=== PATIENT | female | born 1970 | race Caucasian/White ===

== ENCOUNTER 2025-03-03 09:25 | Outpatient (CLI) | payer BC ==
[2025-03-03 10:14] LABS: #Basophils 0.1 thou/uL (0.0-0.2); #Eosinophils 0.1 thou/uL (0.0-0.7); #Lymphocytes 2.8 thou/uL (1.20-3.40); #Monocytes 0.6 thou/uL (0.11-0.59); #Neutrophils 3.4 thou/uL (1.40-6.50); %Basophils 1.3 % (0.0-1.0); %Eosinophils 1.8 % (0.0-10.0); %Lymphocytes 39.7 % (21.0-51.0); %Monocytes 8.4 % (0.0-10.0); %Neutrophils 48.8 % (42.0-75.0); Hematocrit 40.4 % (36.0-47.0); Hemoglobin 13.2 g/dL (12.0-16.0); Mean Corpuscular Hemoglobin 28.7 pg (27.0-31.0); Mean Corpuscular Volume 87.7 fl (78.0-98.0); Platelet Count 209 10x3/uL (130-400); Red Blood Cell (RBC) Count 4.61 mill/uL (4.20-5.40); White Blood Cell (WBC) Count 7.0 10x3/uL (4.8-10.8)
[2025-03-03 10:44] LABS: ALT (SGPT) 10 U/L (Less than 34); AST (SGOT) 17 U/L (11-34); Albumin 4.3 g/dL (3.1-4.5); Alkaline Phosphatase 40 U/L (40-110); Anion Gap 13 mmol/L (10-20); BUN (Urea Nitrogen) 12 mg/dL (9.8-20.1); Bilirubin, Total 0.3 mg/dL (0.3-1.2); Calc. Creatinine Clearance 0 mL/min (70-130); Calcium 8.9 mg/dL (7.8-10.44); Carbon Dioxide 23 mmol/L (22-29); Chloride 107 mmol/L (98-107); Globulin 3.0 g/dL (2.4-3.5); Glucose 100 mg/dL (70-105); Potassium 4.0 mmol/L (3.5-5.1); Sodium 139 mmol/L (136-145)
[2025-03-03 16:45] LABS: Albumin (w/Testosterone Panel) 4.2 g/dL
[2025-03-03 16:51] LABS: Iron 61 ug/dL (50-170); Iron Binding Capacity, Total 408 mcg/dL (265-497)
[2025-03-03 16:57] LABS: Vitamin D, 25 Hydroxy 61.6 ng/ml (> 30.0)
[2025-03-03 17:18] LABS: Testosterone, Free 16.9 pg/mL (50-110)
[2025-03-03 17:42] LABS: Ferritin 37.53 ng/mL (10-291); Free T4 (Free Thyroxine) 0.98 ng/dL (0.70-1.48); Vitamin B12 280.0 pg/mL (211-911)
== END 2025-03-03 09:26 | disposition home or self-care (01) ==
LOC: MADLAB 09:25
PROVIDERS: ATTEND Nurse Practitioner Family
DX: Z79.890 Hormone replacement therapy (principal)
CPT/HCPCS: 36415; 80053; 82306; 82607; 82672; 82728; 83001; 83540; 83550; 84270; 84403; 84439; 84443; 84481; 85025; 86376